=== PATIENT | female | born 1975 | race Caucasian/White ===

== ENCOUNTER 2021-02-05 08:30 | Emergency (ER) | payer MEDICARE, MEDICAID, SELFPAY ==
[2021-02-05 08:31] VITALS: BP 127/74; PULSE 103; RESP 14; TEMP 37; O2SAT 95; BMI 44.3
--- NOTE | 2021-02-05 08:46 | EKG12_ITS ---
Test Reason : ABDOMINAL PAIN Blood Pressure : / mmHG Vent. Rate : 106 BPM Atrial Rate : 106 BPM P-R Int : 158 ms QRS Dur : 098 ms QT Int : 382 ms P-R-T Axes : 043 057 035 degrees QTc Int : 507 ms Sinus tachycardia Otherwise normal ECG Confirmed by NELY ADAM, JAVIER ([id number]), movie editor NALDO MORGAN ([id number]) on 02/07/2021 2:20:45 PM Referred By: Confirmed By:JAVIER MCKAY MD
--- NOTE | 2021-02-05 08:49 | NURSING ---
NO OLD EKGS
[2021-02-05] MEDS: Ondansetron 4 MG/2 ML Vial IV (08:51)
[2021-02-05] MEDS: 0.9% Normal Saline 1,000 ML 1000 ML IV (08:51)
[2021-02-05 09:02] LABS: Absolute Lymphocyte Count 2.12 X10^3/uL (0.83-4.51); Absolute Neutrophil Count 7.6 X10^3/uL (2.0-7.7); Basophil# 0.05 X10^3/uL; Basophil% 0.5 % (0-1); Eosinophil# 0.18 X10^3/uL; Eosinophils% 1.7 % (0-5); Hematocrit 39.8 % (37-47); Hemoglobin 12.9 g/dL (12.0-15.0); Lymphocyte # 2.12 X10^3/ul (0.83-4.51); Lymphocyte % 19.8 % (19-41); Mean Corp Hgb Conc 32.4 g/dL (32-36); Mean Corpuscular Volume 86.3 fL (81-99); Mean Platelet Vol. 9.9 fl (6.2-12.0); Monocyte# 0.68 X10^3/uL; Monocyte% 6.4 % (0-10); NRBC Flagged by Analyzer 0 % (0-5); Neutrophil # 7.62 X10^3/uL (2.7-7.7); Neutrophil % 71.1 % (47-70); Platelet Count 331 K/mm3 (150-450); RBC Distribution Width CV 13.1 % (11.6-14.6); RBC Distribution Width SD 40.6 fl (35.1-43.9); Red Blood Count 4.61 M/mm3 (4.2-5.4); White Blood Count 10.7 K/mm3 (4.4-11.0)
[2021-02-05 09:26] LABS: ALB/GLOB Ratio 0.8 RATIO (0.9-2.4); AST(SGOT) 46 U/L (15-37); Alanine Aminotransfer ALT/SGPT 54 U/L (13-56); Albumin, Serum 3.3 g/dL (3.2-5.0); Alkaline Phosphatase 106 U/L (45-117); Anion Gap 9 (5-15); BUN 11 mg/dL (7-18); BUN/Creat Ratio 14.3 RATIO (10-20); Calcium,Total 8.7 mg/dL (8.5-10.1); Chloride 105 mmol/L (98-107); Creatinine, Serum 0.77 mg/dL (0.55-1.02); EST Glomerular Filtration Rate 87 mL/min (>60); Est Glom Filt Rate - Afr Amer 105 mL/min (>60); Estimated Creatinine Clearance 108.71 ml/min; Globulin 4.4 g/dL (2.2-4.2); Glucose 109 mg/dL (74-106); Lipase 107 U/L (73-393); Potassium 3.4 mmol/L (3.5-5.1); Protein, Total 7.7 g/dL (6.4-8.2); Sodium Level 139 mmol/L (136-145)
--- NOTE | 2021-02-05 10:14 | ED.VIS.LOWEX ---
HPI History of Present Illness Chief Complaint: Abd Pain [facility] Medical History (Updated 02/05/21 @ 08:32 by Kourtney Jones) Depression Home Medications citalopram 40 mg PO DAILY 02/05/21 [History Last Taken Unknown] Allergy/AdvReac Type Severity Reaction Status Date / Time No Known Allergies Allergy Verified 02/05/21 08:36 Social History Smoking Status: Never smoker EXAM Physical Exam Const Vital Signs: 02/05/21 08:31 Temperature 98.6 F Temperature Source Oral Pulse Rate 103 H Respiratory Rate 14 Blood Pressure 127/74 H Blood Pressure Mean 91 Pulse Ox 95 Oxygen Delivery Method Room Air [facility] Lab Data Labs: Laboratory Results - last 24 hr 02/05/21 02/05/21 08:25 08:25 WBC 10.7 RBC 4.61 Hgb 12.9 Hct 39.8 MCV 86.3 MCH 28.0 MCHC 32.4 RDW Std Deviation 40.6 RDW Coeff of [place] 13.1 Plt Count 331 MPV 9.9 Immature Gran % (Auto) 0.500 Neut % (Auto) 71.1 H Lymph % (Auto) 19.8 [place] % (Auto) 6.4 Eos % (Auto) 1.7 Baso % (Auto) 0.5 Absolute Neuts (auto) 7.6 Absolute Lymphs (auto) 2.12 Nucleated RBC % 0 Sodium 139 Potassium 3.4 L Chloride 105 Carbon Dioxide 25.0 Anion Gap 9 BUN 11 Creatinine 0.77 Estim Creat Clear Calc 108.71 Est GFR (MDRD) Af Amer 105 Est GFR (MDRD) Non-Af 87 BUN/Creatinine Ratio 14.3 Glucose 109 H Calcium 8.7 Total Bilirubin 0.70 AST 46 H ALT 54 Alkaline Phosphatase 106 Total Protein 7.7 Albumin 3.3 Globulin 4.4 H Albumin/Globulin Ratio 0.8 L Lipase 107 Discharge Plan Triage Chief Complaint: Abd Pain ED Provider: Tomas West Dx/Rx/DC Orders Prescriptions: No Action citalopram 40 mg Tablet 40 mg PO DAILY RF: 0 Primary Care Provider: [facility] Doctor,Out of
--- NOTE | 2021-02-05 10:32 | ED.VIS.GI ---
HPI HPI - GI History of Present Illness Chief Complaint: Abd Pain Narrative Narrative: Patient presenting for evaluation secondary to nausea vomiting and some lightheadedness. Patient states that this morning while she was getting ready for her cat show she was having some nausea and vomiting. She had a couple of episodes this was nonbloody and nonbilious. She reports that she had some crampy abdominal pain. This then became associated with a feeling of lightheadedness. She denies any chest pain or palpitations. She did not completely pass out. Patient denies any diarrhea. She denies any sick contacts. Review of systems otherwise negative. [facility] Medical History Depression Home Medications citalopram 40 mg PO DAILY 02/05/21 [History Last Taken Unknown] promethazine 25 mg PO Q6H PRN PRN #10 tablet 02/05/21 [Rx Last Taken Unknown] Allergy/AdvReac Type Severity Reaction Status Date / Time No Known Allergies Allergy Verified 02/05/21 08:36 Social History Smoking Status: Never smoker ROS ROS ED Constitutional Constitutional ED: Reports other Details: Lightheadedness ENT ENT ED: Denies sore throat Cardiovascular Cardiovascular: Denies chest pain Respiratory/Chest Respiratory/Chest: Denies cough or dyspnea Gastrointestinal Gastrointestinal: Reports abdominal pain, nausea and vomiting Genitourinary Genitourinary ED: Denies dysuria, hematuria or urinary frequency Musculoskeletal Musculoskeletal: Denies myalgias Integumentary Denies rash Neurologic Neurologic: Denies paresthesias or weakness Psychiatric Psychiatric: Denies depression Endocrine Endocrinology: Denies polyuria Hematologic/Lymphatic Hematologic/Lymphatic: Denies easy bleeding or easy bruising Allergic/Immunologic Allergic/Immunologic ED: Denies urticaria EXAM Physical Exam Const Vital Signs: 02/05/21 08:31 Temperature 98.6 F Temperature Source Oral Pulse Rate 103 H Respiratory Rate 14 Blood Pressure 127/74 H Blood Pressure Mean 91 Pulse Ox 95 Oxygen Delivery Method Room Air Positive well nourished and well developed General Appearance ED: well developed and NAD HEENT normocephalic and atraumatic Eyes EOMs intact bilaterally General Eye ED: Negative for pale conjunctiva or scleral icterus Neck no lymphadenopathy and supple Resp normal respiratory effort and clear to auscultation bilaterally Cardio regular rhythm, no murmurs and peripheral pulses 2+ throughout Rate: tachycardic GI non-tender, non-distended and no masses Palpation: soft; Negative for guarding, rigid or rebound tenderness present Back/Spine no CVA tenderness Extremity full ROM General Extremety ED: Negative for edema General Extremity: Negative for edema Neuro moves all extremities and no sensory deficits noted Sensorium / Orientation: alert, oriented to person, oriented to place and oriented to time Motor Exam: strength 5/5 throughout Psych mental status grossly normal Skin Rashes: no rashes MDM MDM MDM Narrative Medical decision making narrative: Patient presented with lightheadedness nausea and vomiting. She has a benign abdominal exam I do not believe that imaging is indicated. IV was established patient was given fluids and Zofran. CBC and chemistry were unremarkable no significant electrolyte derangement or elevation of white blood cell count. Patient had improvement on repeat evaluation at 1030 I believe that she likely has a GI illness that precipitated her lightheadedness. Her EKG was normal. Patient will be discharged with a course of phenergan. She will follow-up with primary care. Lab Data Labs: Laboratory Results - last 24 hr 02/05/21 02/05/21 08:25 08:25 WBC 10.7 RBC 4.61 Hgb 12.9 Hct 39.8 MCV 86.3 MCH 28.0 MCHC 32.4 RDW Std Deviation 40.6 RDW Coeff of [place] 13.1 Plt Count 331 MPV 9.9 Immature Gran % (Auto) 0.500 Neut % (Auto) 71.1 H Lymph % (Auto) 19.8 [place] % (Auto) 6.4 Eos % (Auto) 1.7 Baso % (Auto) 0.5 Absolute Neuts (auto) 7.6 Absolute Lymphs (auto) 2.12 Nucleated RBC % 0 Sodium 139 Potassium 3.4 L Chloride 105 Carbon Dioxide 25.0 Anion Gap 9 BUN 11 Creatinine 0.77 Estim Creat Clear Calc 108.71 Est GFR (MDRD) Af Amer 105 Est GFR (MDRD) Non-Af 87 BUN/Creatinine Ratio 14.3 Glucose 109 H Calcium 8.7 Total Bilirubin 0.70 AST 46 H ALT 54 Alkaline Phosphatase 106 Total Protein 7.7 Albumin 3.3 Globulin 4.4 H Albumin/Globulin Ratio 0.8 L Lipase 107 EKG Initial EKG: Attestation: I personally reviewed and interpreted this EKG as follows: (Minimal sinus tachycardia with a rate of 106, isoelectric ST segments normal T waves normal intervals no evidence of acute ischemia or arrhythmia) Discharge Plan Triage Chief Complaint: Abd Pain ED Provider: Tomas West Dx/Rx/DC Orders Clinical Impression: Gastritis Prescriptions: New promethazine 25 mg tablet 25 mg PO Q6H PRN PRN (Reason: Nausea) Qty: 10 RF: 0 No Action citalopram 40 mg Tablet 40 mg PO DAILY RF: 0 Primary Care Provider: Sathya Herndon,Out of Referrals: [facility] ,Out of [Primary Care Provider] - Activity Restrictions/Additional Instructions: Follow-up with your primary care physician if not improving in 24 to 48 hours Disposition Disposition: Home, Self Care
[2021-02-05 10:46] VITALS: BP 137/88; PULSE 98; RESP 17; O2SAT 98
== END 2021-02-05 11:16 | disposition home or self-care (01) ==
PROVIDERS: Emergency Provider Emergency Medicine
DX: K29.70 Gastritis, unspecified, without bleeding (principal)
CPT/HCPCS: 80053; 83690; 85025; 93005; 96361; 96374; 99285; J7030; J2405